=== PATIENT | female | born 1975 | race Caucasian/White ===

== ENCOUNTER 2018-11-11 10:11 | Emergency (ER) | payer OTHER ==
[2018-11-11] MEDS ORDERED: PENVK500 PO (11:59)
== END 2018-11-11 11:07 | disposition left against medical advice (07) ==
LOC: ER 10:11
DX: Z53.21 Procedure and treatment not carried out due to patient leaving prior to being seen by health care provider (principal)

== ENCOUNTER 2018-11-11 11:14 | Emergency (ER) | payer OTHER ==
[~2018-11-11] VITALS: Ht 154.9 cm; Wt 68.0 kg
[2018-11-11] MEDS ORDERED: PENVK500 PO (11:59)
== END 2018-11-11 12:21 | disposition home or self-care (01) ==
LOC: ER 11:14
DX: J02.0 Streptococcal pharyngitis (principal); Z88.2 Allergy status to sulfonamides; F17.200 Nicotine dependence, unspecified, uncomplicated
CPT/HCPCS: 87430; 99282